=== PATIENT | male | born 1965 | race Caucasian/White ===

== ENCOUNTER 2016-10-17 10:50 | Emergency (ER) | payer OTHER ==
[2016-10-17 11:05] VITALS: BP 136/89
[2016-10-17] MEDS ORDERED: Tetan/Diph/Pertus SYR(Tdap)* 0.5 ML SYR(BOOSTRIX) use SYR IM ONE (11:11)
--- NOTE | 2016-10-17 13:50 | UC ---
Laceration HPI - HPI Summary HPI Summary: 51 year old male presents with frontal head laceration. - History Of Current Complaint Chief Complaint: UCLaceration Stated Complaint: FOREHEAD LAC WC Time Seen by Provider: 10/17/16 11:07 Pain Intensity: 1 Pain Scale Used: 0-10 Numeric - Allergies/Home Medications Allergies/Adverse Reactions: Allergies Allergy/AdvReac Type Severity Reaction Status Date / Time No Known Allergies Allergy Verified 10/17/16 11:05 PMH/Surg Hx/FS Hx/Imm Hx - Surgical History Surgical History: Yes Surgery Procedure, Year, and Place: Left index finger with graft, testoscopy and release s/p injury at age 9 yrs - Family History Known Family History: Negative: Diabetes - Social History Alcohol Use: None Substance Use Type: None Smoking Status (MU): Never Smoked Tobacco - Immunization History Most Recent Tetanus Shot: unknown Review of Systems Constitutional: Negative Skin: Other - fontal scalp laceration Eyes: Negative ENT: Negative Respiratory: Negative Cardiovascular: Negative Gastrointestinal: Negative Genitourinary: Negative Motor: Negative Neurovascular: Negative Musculoskeletal: Negative Neurological: Negative Psychological: Negative All Other Systems Reviewed And Are Negative: Yes Physical Exam Triage Information Reviewed: Yes Vital Signs: Initial Vital Signs Temp 37.3 C 10/17/16 10:59 Pulse 70 10/17/16 10:59 Resp 16 10/17/16 10:59 BP 136/89 10/17/16 10:59 Pulse Ox 98 10/17/16 10:59 Eye Exam: Normal ENT Exam: Normal Dental Exam: Normal Neck exam: Normal Neck: Positive: 1 Respiratory Exam: Normal Cardiovascular Exam: Normal Abdominal Exam: Normal Musculoskeletal Exam: Normal Neurological Exam: Normal Psychological Exam: Normal Skin Exam: Normal Skin: Positive: Other - frontal scalp laceration Laceration Repair - Laceration Repair 1 Laceration Size After Repair: Length (cm) - 3 Modified For Repair: No Cleansing Completed Via Routine Prep: Yes Irrigation With Pressure Irrigation Device: Yes Closure Material: Shasha - 4 shasha to frontal scalp Suture Of: Skin Laceration Course/Dx - Differential Dx - Laceration/Wound Provider Diagnoses: scalp laceration Discharge - Discharge Plan Condition: Stable Disposition: HOME Prescriptions: Sulfamethox/Trimethoprim DS* [Bactrim DS 800/160 TAB*] 1 tab PO BID #20 tab Patient Education Materials: Laceration (ED) Referrals: Debbie Hooks MD [Medical Doctor] - 2 Days
== END 2016-10-17 11:50 | disposition home or self-care (01) ==
LOC: UCCORT 10:50
DX: S01.01XA Laceration without foreign body of scalp, initial encounter (principal); Z23 Encounter for immunization; X58.XXXA Exposure to other specified factors, initial encounter; Y93.9 Activity, unspecified; Y92.9 Unspecified place or not applicable; Y99.0 Civilian activity done for income or pay
CPT/HCPCS: 12002; 12013; 90471; 90715; 99212; G0463

== ENCOUNTER 2016-10-20 12:16 | Emergency (ER) | payer OTHER ==
--- NOTE | 2016-10-20 12:25 | UC ---
HPI Wound/Suture Re-check - HPI Summary HPI Summary: [address] in top of head 2 days ago--tetanus updated at that time - History Of Current Complaint Chief Complaint: Mariaa Stated Complaint: RECHECK SHASHA-WC Time Seen by Provider: 10/20/16 12:20 Hx Obtained From: Patient Onset/Duration: Sudden Onset, Lasting Days - 2 Surgical Site: head Severity: Mild Pain Intensity: 0 Pain Scale Used: 0-10 Numeric - Allergies/Home Medications Allergies/Adverse Reactions: Allergies Allergy/AdvReac Type Severity Reaction Status Date / Time No Known Allergies Allergy Verified 10/20/16 12:26 PMH/Surg Hx/FS Hx/Imm Hx Previously Healthy: Yes - Surgical History Surgical History: Yes Surgery Procedure, Year, and Place: Left index finger with graft, testoscopy and release s/p injury at age 9 yrs - Family History Known Family History: Negative: Diabetes - Social History Occupation: Employed Full-time Lives: With Family Alcohol Use: None Substance Use Type: None Smoking Status (MU): Never Smoked Tobacco - Immunization History Most Recent Tetanus Shot: unknown Review of Systems Constitutional: Negative Skin: Other - intact shasha on top of head---no c/o Eyes: Negative ENT: Negative Respiratory: Negative Cardiovascular: Negative Gastrointestinal: Negative Genitourinary: Negative Motor: Negative Neurovascular: Negative Musculoskeletal: Negative Neurological: Negative Psychological: Negative All Other Systems Reviewed And Are Negative: Yes Physical Exam Triage Information Reviewed: Yes Appearance: Well-Appearing, No Pain Distress, Well-Nourished Vital Signs Reviewed: Yes Eye Exam: Normal Eyes: Positive: Conjunctiva Clear ENT Exam: Normal ENT: Positive: Normal ENT inspection, Hearing grossly normal. Negative: Nasal congestion, Nasal drainage, Trismus, Muffled/hoarse voice Dental Exam: Normal Neck exam: Normal Neck: Positive: Supple, Nontender Respiratory Exam: Normal Respiratory: Positive: Chest non-tender, No respiratory distress, No accessory muscle use Cardiovascular Exam: Normal Cardiovascular: Positive: RRR, Pulses Normal, Brisk Capillary Refill Musculoskeletal Exam: Normal Musculoskeletal: Positive: Strength Intact, ROM Intact, No Edema Neurological Exam: Normal Neurological: Positive: Alert, Muscle Tone Normal Psychological Exam: Normal Skin: Positive: Other - 4 intact shasha in healing wound no evidence of infection Course/Dx - Course Course Of Treatment: continue a/b as rx, return in -9 days for staple removal - Differential Dx - Laceration/Wound Differential Diagnoses: Cellulitis, Healing Wound Provider Diagnoses: Wound re-check, healing wound Discharge - Discharge Plan Condition: Stable Disposition: HOME Patient Education Materials: Staple Care (ED) Referrals: [facility] [[facility]] - If Needed Additional Instructions: return in 8-9 days for staple removal
[2016-10-20 12:32] VITALS: BP 131/86
== END 2016-10-20 12:33 | disposition home or self-care (01) ==
LOC: UCCORT 12:16
DX: Z09 Encounter for follow-up examination after completed treatment for conditions other than malignant neoplasm (principal)
CPT/HCPCS: 99211; G0463

== ENCOUNTER 2016-10-28 12:22 | Emergency (ER) | payer OTHER ==
[2016-10-28 12:46] VITALS: BP 128/77
--- NOTE | 2016-10-28 12:51 | UC ---
HPI Wound/Suture Re-check - HPI Summary HPI Summary: here for staple removal [address] on the frontal scalp 9 days ago the wound is healing well, no pain, swelling or discharge - History Of Current Complaint Stated Complaint: STAPLE REMOVAL Time Seen by Provider: 10/28/16 12:39 Hx Obtained From: Patient Onset/Duration: Sudden Onset, Lasting Days - 9, Still Present Severity: Moderate Procedure Type: staple removal Surgery Date: 10/17/16 Head: 1 - 1.5 cm laceration 4 staple is inplaced - Allergies/Home Medications Allergies/Adverse Reactions: Allergies Allergy/AdvReac Type Severity Reaction Status Date / Time No Known Allergies Allergy Verified 10/20/16 12:26 PMH/Surg Hx/FS Hx/Imm Hx Previously Healthy: Yes - Surgical History Surgical History: Yes Surgery Procedure, Year, and Place: Left index finger with graft, testoscopy and release s/p injury at age 9 yrs - Family History Known Family History: Negative: Diabetes - Social History Alcohol Use: None Substance Use Type: None Smoking Status (MU): Never Smoked Tobacco - Immunization History Most Recent Tetanus Shot: September 2016 Review of Systems Constitutional: Negative Skin: Negative Eyes: Negative ENT: Negative Respiratory: Negative All Other Systems Reviewed And Are Negative: Yes Physical Exam Triage Information Reviewed: Yes Appearance: Well-Appearing, No Pain Distress, Well-Nourished Vital Signs: Initial Vital Signs Temp 99.1 F 10/28/16 12:43 Pulse 77 10/28/16 12:43 Resp 20 10/28/16 12:43 BP 128/77 10/28/16 12:43 Vital Signs Reviewed: Yes Eye Exam: Normal Eyes: Positive: Conjunctiva Clear ENT: Positive: Normal ENT inspection, Hearing grossly normal, Pharynx normal Neck: Positive: Supple, Nontender, No Lymphadenopathy Respiratory: Positive: Chest non-tender, Lungs clear, Normal breath sounds Cardiovascular: Positive: RRR, No Murmur, Pulses Normal Musculoskeletal Exam: Normal Skin: Positive: Other - 4 staple was removed from the frontal scalp, wound is clean , dry healing well Course/Dx - Differential Dx - Laceration/Wound Provider Diagnoses: staple removal Discharge - Discharge Plan Condition: Stable Disposition: HOME Patient Education Materials: Acute Wound Care (ED) Referrals: No Primary Care Phys,NOPCP [Primary Care Provider] - If Needed
== END 2016-10-28 12:50 | disposition home or self-care (01) ==
LOC: UCCORT 12:22
DX: S01.01XD Laceration without foreign body of scalp, subsequent encounter (principal); X58.XXXD Exposure to other specified factors, subsequent encounter; Y92.9 Unspecified place or not applicable
CPT/HCPCS: 99211; G0463

== ENCOUNTER 2016-12-16 15:37 | Emergency (ER) | payer OTHER ==
[2016-12-16 15:51] VITALS: BP 137/92
[2016-12-16] MEDS ORDERED: Lidocaine 2% W/EPI 1:100,000* 20 ML MDV INJ ONE (16:10)
--- NOTE | 2016-12-16 16:10 | UC ---
Laceration HPI - HPI Summary HPI Summary: laceration left wrist x 2 hrs ago injury to his wrist at work - History Of Current Complaint Chief Complaint: UCLaceration Stated Complaint: LEFT WRIST LAC (WC) Time Seen by Provider: 12/16/16 15:53 Hx Obtained From: Patient Laceration Location: Wrist - left Mechanism Of Injury: Blunt Trauma Onset/Duration: Sudden Onset, Lasting Hours - 2, Still Present Severity: Moderate Aggravating Factors: Movement - Allergies/Home Medications Allergies/Adverse Reactions: Allergies Allergy/AdvReac Type Severity Reaction Status Date / Time No Known Allergies Allergy Verified 12/16/16 15:42 Home Medications: Home Medications Naproxen Sodium [Naproxen Sodium 220 mg] 220 mg PO Q6H PRN 12/16/16 [History Confirmed 12/16/16] PMH/Surg Hx/FS Hx/Imm Hx Previously Healthy: Yes - Surgical History Surgical History: Yes Surgery Procedure, Year, and Place: Left index finger with graft, testoscopy and release s/p injury at age 9 yrs - Family History Known Family History: Negative: Diabetes - Social History Alcohol Use: None Substance Use Type: None Smoking Status (MU): Never Smoked Tobacco - Immunization History Most Recent Tetanus Shot: September 2016 Review of Systems Constitutional: Negative Skin: Negative Eyes: Negative ENT: Negative Respiratory: Negative Is Patient Immunocompromised?: No All Other Systems Reviewed And Are Negative: Yes Physical Exam Triage Information Reviewed: Yes Appearance: Well-Appearing, No Pain Distress, Well-Nourished Vital Signs: Initial Vital Signs Temp 99.1 F 12/16/16 15:44 Pulse 82 12/16/16 15:44 Resp 18 12/16/16 15:44 BP 137/92 12/16/16 15:44 Pulse Ox 97 12/16/16 15:44 Eye Exam: Normal Eyes: Positive: Conjunctiva Clear Neck exam: Normal Neck: Positive: Supple, Nontender, No Lymphadenopathy Respiratory: Positive: Chest non-tender, Lungs clear, Normal breath sounds Cardiovascular Exam: Normal Cardiovascular: Positive: RRR, No Murmur, Pulses Normal Abdominal Exam: Normal Skin: Positive: Other - laceration left wrist : =2 cm / minimal bleeding Laceration Repair - Laceration Repair 1 Description: Linear Laceration Size After Repair: Length (cm) - 2, Width (mm) - 2, Depth (mm) - 2 Modified For Repair: No Type Injection: Local Anesthesia Used: 2.0% Lido Additive Used (in ml): Epi Cleansing Completed Via Routine Prep: Yes Irrigation With Pressure Irrigation Device: Yes Closure Method: Single Layer Suture Of: Skin Suture Type: Nylon - 5.0 nylon x 3 Laceration Course/Dx - Differential Dx - Laceration/Wound Provider Diagnoses: laceration left wrist Discharge - Discharge Plan Condition: Stable Disposition: HOME Patient Education Materials: Laceration (ED) Referrals: No Primary Care Phys,NOPCP [Primary Care Provider] - Additional Instructions: suture removal in 7 days
== END 2016-12-16 16:47 | disposition home or self-care (01) ==
LOC: UCCORT 15:37
DX: S61.512A Laceration without foreign body of left wrist, initial encounter (principal); W45.8XXA Other foreign body or object entering through skin, initial encounter; Y93.9 Activity, unspecified; Y92.9 Unspecified place or not applicable; Y99.0 Civilian activity done for income or pay
CPT/HCPCS: 12001; 99211; G0463

== ENCOUNTER 2016-12-22 17:42 | Emergency (ER) | payer BC, OTHER ==
--- NOTE | 2016-12-22 18:05 | UC ---
HPI Wound/Suture Re-check - HPI Summary HPI Summary: 51 YEAR OLD MALE PRESENTS FOR LEFT FOREARM SUTURE REMOVAL. - History Of Current Complaint Stated Complaint: SUTURE REMOVAL Time Seen by Provider: 12/22/16 18:04 Hx Obtained From: Patient Onset/Duration: Lasting Days Severity: Mild Pain Scale Used: 0-10 Numeric - 0 - Allergies/Home Medications Allergies/Adverse Reactions: Allergies Allergy/AdvReac Type Severity Reaction Status Date / Time No Known Allergies Allergy Verified 12/22/16 18:20 PMH/Surg Hx/FS Hx/Imm Hx Previously Healthy: Yes - Surgical History Surgical History: Yes Surgery Procedure, Year, and Place: Left index finger with graft, testoscopy and release s/p injury at age 9 yrs - Family History Known Family History: Negative: Diabetes - Social History Alcohol Use: None Substance Use Type: None Smoking Status (MU): Never Smoked Tobacco - Immunization History Most Recent Tetanus Shot: September 2016 Review of Systems Constitutional: Negative Skin: Other - LEFT FOREARM LACERATION C/D/I Eyes: Negative ENT: Negative Respiratory: Negative Cardiovascular: Negative Gastrointestinal: Negative Genitourinary: Negative Motor: Negative Neurovascular: Negative Musculoskeletal: Negative Neurological: Negative Psychological: Negative All Other Systems Reviewed And Are Negative: Yes Physical Exam Triage Information Reviewed: Yes Appearance: Well-Appearing Vital Signs Reviewed: Yes Eye Exam: Normal ENT Exam: Normal Dental Exam: Normal Neck exam: Normal Neck: Positive: 1 Respiratory Exam: Normal Cardiovascular Exam: Normal Abdominal Exam: Normal Musculoskeletal Exam: Normal Neurological Exam: Normal Psychological Exam: Normal Skin: Positive: Other - LEFT FOREARM LACERATION C/D/I Course/Dx - Differential Dx - Laceration/Wound Provider Diagnoses: LEFT FOREARM LACERATION REMOVAL Discharge - Discharge Plan Condition: Stable Disposition: HOME Patient Education Materials: Stitches Removal (ED) Referrals: No Primary Care Phys,NOPCP [Primary Care Provider] -
[2016-12-22 18:06] VITALS: BP 142/91
== END 2016-12-22 18:14 | disposition home or self-care (01) ==
LOC: UCCORT 17:42
DX: S51.812D Laceration without foreign body of left forearm, subsequent encounter (principal); W26.9XXD Contact with unspecified sharp object(s), subsequent encounter

== ENCOUNTER 2016-12-22 18:15 | Emergency (ER) | payer BC, OTHER ==
[2016-12-22 18:20] VITALS: BP 142/91
--- NOTE | 2016-12-22 18:23 | UC ---
Lower Extremity/Ankle HPI - HPI Summary HPI Summary: 51 YEAR OLD MALE PRESENTS WITH COMPLAINS OF LEFT BIG TOE/ANKLE GOUT. - History of Current Complaint Stated Complaint: GOUT Time Seen by Provider: 12/22/16 18:17 Hx Obtained From: Patient Onset/Duration: Sudden Onset Severity Initially: Moderate Severity Currently: Moderate Pain Scale Used: 0-10 Numeric - 8 Aggravating Factor(s): Standing Alleviating Factor(s): Rest - Allergies/Home Medications Allergies/Adverse Reactions: Allergies Allergy/AdvReac Type Severity Reaction Status Date / Time No Known Allergies Allergy Verified 12/22/16 18:20 PMH/Surg Hx/FS Hx/Imm Hx - Surgical History Surgical History: Yes Surgery Procedure, Year, and Place: Left index finger with graft, testoscopy and release s/p injury at age 9 yrs - Family History Known Family History: Negative: Diabetes - Social History Alcohol Use: None Substance Use Type: None Smoking Status (MU): Never Smoked Tobacco - Immunization History Most Recent Influenza Vaccination: no Most Recent Tetanus Shot: September 2016 Review of Systems Constitutional: Negative Skin: Negative Eyes: Negative ENT: Negative Respiratory: Negative Cardiovascular: Negative Gastrointestinal: Negative Genitourinary: Negative Motor: Negative Neurovascular: Negative Musculoskeletal: Other: - LEFT BIG TOE GOUT Neurological: Negative Psychological: Negative All Other Systems Reviewed And Are Negative: Yes Physical Exam Triage Information Reviewed: Yes Eye Exam: Normal ENT Exam: Normal Dental Exam: Normal Neck exam: Normal Neck: Positive: 1 Respiratory Exam: Normal Cardiovascular Exam: Normal Abdominal Exam: Normal Musculoskeletal Exam: Normal Musculoskeletal: Positive: Other: - LEFT BIG TOE/ANKLE PAIN Neurological Exam: Normal Psychological Exam: Normal Skin Exam: Normal Lower Extremity Course/Dx - Differential Dx/Diagnosis Provider Diagnoses: LEFT BIG TOE GOUT/ANKLE Discharge - Discharge Plan Condition: Stable Disposition: HOME Prescriptions: Colchicine* [Colcrys*] 0.6 mg PO DAILY #6 tab Indomethacin CAP* [Indocin CAP*] 50 mg PO TID PRN #30 cap PRN Reason: Pain Patient Education Materials: Gout (ED) Referrals: No Primary Care Phys,NOPCP [Primary Care Provider] -
== END 2016-12-22 18:30 | disposition home or self-care (01) ==
LOC: UCCORT 18:15
DX: M10.072 Idiopathic gout, left ankle and foot (principal)
CPT/HCPCS: 99212; G0463

== ENCOUNTER 2018-10-21 15:59 | Emergency (ER) | payer BC, OTHER ==
[2018-10-21 16:20] VITALS: BP 142/80
[2018-10-21] MEDS ORDERED: Lidocaine 1% w EPI 1:100,000* 30 ML VIAL INJ ONE (16:33)
--- NOTE | 2018-10-21 16:36 | UC ---
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 - History Of Current Complaint Chief Complaint: UCLaceration Stated Complaint: LACERATION ON LEFT ARM-WC Time Seen by Provider: 10/21/18 16:28 Hx Obtained From: Patient Laceration Location: Arm - left forearm Mechanism Of Injury: Sharp Trauma Onset/Duration: Sudden Onset Severity: Mild Pain Intensity: 1 Aggravating Factors: Position, Movement Related History: Occupational Injury - Allergies/Home Medications Allergies/Adverse Reactions: Allergies Allergy/AdvReac Type Severity Reaction Status Date / Time No Known Allergies Allergy Verified 10/21/18 16:12 Home Medications: Home Medications Allopurinol TAB* [Zyloprim 300 MG TAB*] 300 mg PO DAILY 10/21/18 [History Confirmed 10/21/18] PMH/Surg Hx/FS Hx/Imm Hx - Additional Past Medical History Additional PMH: gout Previously Healthy: Yes GI/ History: Kidney Stones - Surgical History Surgical History: Yes Surgery Procedure, Year, and Place: Left index finger with graft, testoscopy and release s/p injury at age 9 yrs - Family History Known Family History: Negative: Diabetes - Social History Alcohol Use: Rare Substance Use Type: None Smoking Status (MU): Never Smoked Tobacco - Immunization History Most Recent Influenza Vaccination: no Most Recent Tetanus Shot: September 2016 Review of Systems All Other Systems Reviewed And Are Negative: Yes Constitutional: Positive: Negative Skin: Positive: Other - laceration left forearm, no other injuries. Physical Exam Triage Information Reviewed: Yes Appearance: Well-Appearing, No Pain Distress Vital Signs: Initial Vital Signs Temp 98.2 F 10/21/18 16:15 Pulse 88 10/21/18 16:15 Resp 18 10/21/18 16:15 BP 142/80 10/21/18 16:15 Pulse Ox 98 10/21/18 16:15 ENT: Positive: Normal ENT inspection Respiratory: Positive: Lungs clear, Normal breath sounds Cardiovascular: Positive: RRR, No Murmur Musculoskeletal Exam: Normal, Other - normal digital and wrist movement. Neurological: Positive: Alert, Muscle Tone Normal Psychological Exam: Normal Skin Exam: Other - left mid volar forearm with 3cm linear laceration. Laceration Repair - Laceration Repair 1 Description: Linear : No Repair Necessary Laceration Size After Repair: Length (cm) - 3 Modified For Repair: No Type Injection: Local Anesthesia Used: 2.0% Lido Cleansing Completed Via Routine Prep: Yes Irrigation With Pressure Irrigation Device: Yes Closure Material: Sutures - 3 interrupted sutures 5-0 prolene Closure Method: Single Layer Suture Of: Skin Suture Type: Prolene Laceration Course/Dx - Course/Dx Course Of Treatment: repair of laceration left forearm with interrupte sutures. Tetanus up to date within 2 years. - Differential Dx - Laceration/Wound Differental Diagnoses: Laceration - Diagnosis Provider Diagnosis: Laceration of left forearm without complication Discharge - Sign-Out/Discharge Documenting (check all that apply): Patient Departure - sutures All imaging exams completed and their final reports reviewed: No Studies - Discharge Plan Condition: Stable Disposition: HOME Patient Education Materials: Laceration (ED) Referrals: Jefry Martell [Primary Care Provider] - Additional Instructions: Keep the wound clean and dry, changing the dressing daily, or if the the bandage becomes wet or soiled. Return for removal of sutures in 7 days. - Billing Disposition and Condition Condition: STABLE Disposition: Home
[2018-10-21] MEDS ORDERED: Lidocaine 2% PF * 5 ML VIAL INJ ONE (16:45)
== END 2018-10-21 17:13 | disposition home or self-care (01) ==
LOC: UCCORT 15:59
DX: S51.812A Laceration without foreign body of left forearm, initial encounter (principal); X58.XXXA Exposure to other specified factors, initial encounter; Y93.89 Activity, other specified; Y92.79 Other farm location as the place of occurrence of the external cause; Y99.0 Civilian activity done for income or pay
CPT/HCPCS: 12002; 99211; G0463

== ENCOUNTER 2019-01-14 17:17 | Emergency (ER) | payer BC ==
[2019-01-14 17:31] VITALS: BP 135/87
--- NOTE | 2019-01-14 17:40 | UC ---
Dental HPI - HPI Summary HPI Summary: Mr. Gibbs started with a toothache and swelling today. He tried to get into the dentist but they were closed. - History of Current Complaint Chief Complaint: UCDentalProblem Stated Complaint: SWELLING LEFT SIDE OF GUM Time Seen by Provider: 01/14/19 17:32 Pain Intensity: 0 - Allergies/Home Medications Allergies/Adverse Reactions: Allergies Allergy/AdvReac Type Severity Reaction Status Date / Time No Known Allergies Allergy Verified 01/14/19 17:27 Home Medications: Home Medications Ginseng [Lithuanian Ginseng] 250 mg PO QAM 01/14/19 [History Confirmed 01/14/19] Indomethacin CAP* [Indocin CAP*] 50 mg PO TID PRN 01/14/19 [History Confirmed ] Mv-Mn/Iron/FA/Vit K/K.ginseng [[employer] Tab] 1 each PO QAM [History Confirmed 01/14/19] PMH/Surg Hx/FS Hx/Imm Hx Previously Healthy: Yes - Surgical History Surgical History: Yes Surgery Procedure, Year, and Place: Left index finger with graft, testoscopy and release s/p injury at age 9 yrs - Family History Known Family History: Negative: Diabetes - Social History Alcohol Use: None Substance Use Type: None Smoking Status (MU): Never Smoked Tobacco - Immunization History Most Recent Influenza Vaccination: no Most Recent Tetanus Shot: 10/17/16 Review of Systems All Other Systems Reviewed And Are Negative: Yes Constitutional: Positive: Negative ENT: Positive: Dental Pain Physical Exam - Summary Physical Exam Summary: He is non-toxic in appearance with stable vitals Triage Information Reviewed: Yes Appearance: Well-Appearing Vital Signs: Initial Vital Signs Temp 98.4 F 01/14/19 17:26 Pulse 84 01/14/19 17:26 Resp 16 01/14/19 17:26 BP 135/87 01/14/19 17:26 Pulse Ox 98 01/14/19 17:26 Vital Signs Reviewed: Yes ENT Exam: Normal Dental: Positive: Gross Decay/Caries @. Negative: Abscess @, Cellulitis @ Dental Complaint Course/Dx - Course Course Of Treatment: He declined pain medication and I will treat with PCN and encourage dentist F/U. - Differential Dx/Diagnosis Provider Diagnosis: Tooth ache Discharge ED - Sign-Out/Discharge Documenting (check all that apply): Patient Departure All imaging exams completed and their final reports reviewed: No Studies - Discharge Plan Condition: Stable Disposition: HOME Patient Education Materials: Toothache (ED) Referrals: Jefry Martell [Primary Care Provider] - - Billing Disposition and Condition Condition: STABLE Disposition: Home
== END 2019-01-14 17:45 | disposition home or self-care (01) ==
LOC: UCCORT 17:17
DX: K08.89 Other specified disorders of teeth and supporting structures (principal)
CPT/HCPCS: 99212; G0463

== ENCOUNTER 2019-06-13 07:22 | Emergency (ER) | payer BC ==
[2019-06-13 07:33] VITALS: BP 147/84
--- NOTE | 2019-06-13 08:01 | UC ---
Back Pain HPI - HPI Summary HPI Summary: 53-year-old male who was moving a small box yesterday when he had a muscle strain in his right lower back. He denies any saddle anesthesia, no numbness or tingling in his extremities and no problems with bowel or bladder control. 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 Severity Initially: Moderate Severity Currently: Mild Pain Intensity: 0 Character: Dull, Spasmodic - Right lower back. Aggravating Factor(s): Bending Alleviating Factor(s): Rest, Heat Associated Signs And Symptoms: Positive: Negative. Negative: Bruising, Weakness , Numbness, Tingling, Abdominal Pain, Flank Pain, Bladder Incontinence, Bowel Incontinence, Pain with Weight Bearing - Allergies/Home Medications Allergies/Adverse Reactions: Allergies Allergy/AdvReac Type Severity Reaction Status Date / Time No Known Allergies Allergy Verified 06/13/19 07:29 Home Medications: Home Medications Allopurinol TAB* [Zyloprim 300 MG TAB*] 300 mg PO DAILY 10/21/18 [History Confirmed 06/13/19] Indomethacin CAP* [Indocin CAP*] 50 mg PO TID PRN 01/14/19 [History Confirmed ] Mv-Mn/Iron/FA/Vit K/K.ginseng [Centrum [employer] Tab] 1 each PO QAM [History Confirmed 06/13/19] Amoxicillin PO (*) [Amoxicillin 500 MG CAP*] 500 mg PO TID 06/13/19 [History Confirmed 06/13/19] Cyclobenzaprine TAB* [Flexeril 10 MG TAB*] 10 mg PO TID PRN #15 tab 06/13/19 [Rx ] Ibuprofen TAB* [Motrin TAB* 600 MG] 600 mg PO Q8H PRN #30 tab 06/13/19 [Rx] oxyCODONE/Acetamin 5/325 MG* [Percocet 5/325 TAB*] 1 tab PO ONCE 06/13/19 [ History Confirmed 06/13/19] PMH/Surg Hx/FS Hx/Imm Hx Previously Healthy: Yes - Surgical History Surgical History: Yes Surgery Procedure, Year, and Place: Left index finger with graft, testoscopy and release s/p injury at age 9 yrs. R shoulder lumpectomy - Family History Known Family History: Negative: Diabetes - Social History Occupation: Employed Full-time Lives: With Family Alcohol Use: None Substance Use Type: None Smoking Status (MU): Never Smoked Tobacco - Immunization History Most Recent Influenza Vaccination: no Most Recent Tetanus Shot: 10/17/16 Review of Systems All Other Systems Reviewed And Are Negative: Yes Musculoskeletal: Positive: Other: - Pain right lower back more with bending. Is Patient Immunocompromised?: No Physical Exam Triage Information Reviewed: Yes Appearance: Well-Appearing, No Pain Distress, Well-Nourished Vital Signs: Initial Vital Signs Temp 98.6 F 06/13/19 07:30 Pulse 81 06/13/19 07:30 Resp 18 06/13/19 07:30 BP 147/84 06/13/19 07:30 Pulse Ox 99 06/13/19 07:30 Vital Signs Reviewed: Yes Respiratory: Positive: Lungs clear, Normal breath sounds, No respiratory distress, No accessory muscle use Cardiovascular: Positive: RRR, No Murmur, Pulses Normal, Brisk Capillary Refill Abdomen Description: Positive: Nontender, No Organomegaly, Soft. Negative: CVA Tenderness (R), CVA Tenderness (L), Distended, Guarding, Hepatomegaly, McBurney' s Point Tenderness, Splenomegaly Bowel Sounds: Positive: Present Musculoskeletal: Positive: Strength Intact, ROM Intact, Other: - Negative straight leg raise, mild pain on palpation right lower back paraspinal muscle area. No bruising, erythema, and deformity or swelling. Peripheral pulses, neuro sensation and capillary refill. Full range of motion but with mild pain right lower back with range of motion. Neurological Exam: Normal Psychological Exam: Normal Skin Exam: Normal Back Pain Course/Dx - Course Course Of Treatment: Patient is comfortable here. - Differential Dx/Diagnosis Provider Diagnosis: Low back strain Discharge ED - Sign-Out/Discharge Documenting (check all that apply): Patient Departure All imaging exams completed and their final reports reviewed: No Studies - Discharge Plan Condition: Fair Disposition: HOME Prescriptions: Cyclobenzaprine TAB* [Flexeril 10 MG TAB*] 10 mg PO TID PRN #15 tab PRN Reason: Pain - Mild Ibuprofen TAB* [Motrin TAB* 600 MG] 600 mg PO Q8H PRN #30 tab PRN Reason: Pain - Mild Patient Education Materials: Low Back Strain (ED) Forms: *Work Release Referrals: Jefry Martell [Primary Care Provider] - Additional Instructions: Heat to the sore area, no drinking alcohol, driving or operating machinery while taking the muscle relaxant. Take the Motrin with food. Follow-up with your primary care provider if no improvement in 2 or 3 days. Avoid movements that cause pain. - Billing Disposition and Condition Condition: FAIR Disposition: Home
== END 2019-06-13 08:29 | disposition home or self-care (01) ==
LOC: UCCORT 07:22
DX: S39.012A Strain of muscle, fascia and tendon of lower back, initial encounter (principal); X50.0XXA Overexertion from strenuous movement or load, initial encounter; Y93.89 Activity, other specified; Y92.9 Unspecified place or not applicable
CPT/HCPCS: 99212; G0463